=== PATIENT | female | born 1980 | race Caucasian/White ===

== ENCOUNTER 2018-02-25 03:42 | Day surgery (SDC) | payer OTHER ==
[2018-02-23 12:02] LABS: BASOPHIL % 0.4 % (0.0-0.2); EOSINOPHIL # 0.3 10^3/uL (0.0-0.2); EOSINOPHIL % 3.3 % (0.0-5.0); HEMOGLOBIN 15.3 g/dL (12.0-15.0); LYMPHOCYTES # 1.7 10^3/uL (1.0-4.8); LYMPHOCYTES % 19.8 % (24.0-44.0); MEAN CELL HGB 29.1 pg (26-34); MEAN CELL HGB CONCENTRATION 34.5 g/dL (33-37); MEAN CORP VOLUME 84.6 fL (78-100); MEAN PLATELET VOLUME 9.9 fL (7.8-11.0); MONOCYTES # 0.5 10^3/uL (0.3-0.8); MONOCYTES % 6.1 % (5.0-12.0); NEUTROPHIL # 5.9 10^3/uL (1.8-7.7); NEUTROPHILS % 70.2 % (41.0-85.0); RED CELL DISTRIBUTION WIDTH 11.8 % (11.5-14.5); WHITE BLOOD CELL 8.4 10^3/uL (4.5-11.0)
[2018-02-23 12:15] LABS: CALCIUM 8.9 mg/dL (8.4-10.5); CARBON DIOXIDE 28.7 mmol/L (20.0-32)
--- NOTE | 2018-02-23 12:26 | PCM.EKG ---
[facility] Test Date: 2018-02-23 Test Time: 12:10:14 Pat Name: ABDULAZIZ WOODWARD Department: [id number] Room: Gender: F [employer] C[employer]: RT : 1980 Requested By: MARION RENE Order Number: [id number] Reading MD: Carlos Eduardo Hernandez Measurements Intervals [place] Rate: 61 P: 37 NC: 156 QRS: 64 QRSD: 80 T: 64 QT: 428 QTc: 430 Interpretive Statements Normal sinus rhythm with sinus arrhythmia Normal ECG No previous ECG available for comparison Electronically Signed On 02-24-2018 9:20:03 CDT by Carlos Eduardo Hernandez Please click the below link to view image of tracing.
[2018-02-25] VITALS (7 sets, daily range): BP systolic 111–139; BP diastolic 69–88
[~2018-02-25] VITALS: Ht 170.2 cm; Wt 83.9 kg
[~2018-02-25 03:42] MED LIST: MELA3TAB2 PO; METF100010 PO
[2018-02-25] MEDS ORDERED: NS 1000ML 1,000 ML ONE ×2 (05:06→09:47)
[2018-02-25] MEDS ORDERED: LEVAQUIN 100 ML IV ONE (05:06)
[2018-02-25] MEDS ORDERED: DECADRON ONE (06:44)
[2018-02-25] MEDS ORDERED: VERSED ONE (06:45)
[2018-02-25] MEDS ORDERED: DIPRIVAN IV ONE (06:45)
[2018-02-25] MEDS ORDERED: ZOFRAN ONE (06:45)
[2018-02-25] MEDS ORDERED: SUBLIMAZE ONE ×2 (06:45→09:16)
[2018-02-25] MEDS ORDERED: SODIUM CHLORIDE IR ONE (07:19)
[2018-02-25] MEDS ORDERED: NS 3000ML IRR IR ONE (07:19)
[2018-02-25] MEDS ORDERED: NS 1000ML 1,000 ML IV SCH (08:00)
[2018-02-25] MEDS ORDERED: SUBLIMAZE IV STA (08:58)
[2018-02-25] MEDS ORDERED: TORADOL ONE (09:59)
[2018-02-25] MEDS ORDERED: PHENERGAN ONE (10:35)
[2018-02-25] MEDS ORDERED: NORCO 7.5MG PO PRN (11:00)
[2018-02-25] MEDS ORDERED: SUBLIMAZE IV PRN (11:00)
[2018-02-25] MEDS ORDERED: PHENERGAN IV PRN (11:00)
[2018-02-25] MEDS ORDERED: LACTATED RINGERS 1,000 ML IV SCH (11:00)
[2018-02-25] MEDS ORDERED: ZOFRAN IV PRN (11:00)
[2018-02-25] MEDS ORDERED: NORCO 7.5MG PO ONE (11:18)
--- NOTE | 2018-02-25 11:50 | OPH ---
DATE OF SURGERY: 02/25/2018 PREOPERATIVE DIAGNOSIS: Calculus, right ureteropelvic junction. FINAL DIAGNOSIS: Calculus in the right kidney. PROCEDURES: Cystoscopy, right retrograde. DESCRIPTION OF PROCEDURE: The patient was brought to the cystoscopy room, was put in supine position on the cystoscopy table. After the patient was given an LMA general anesthesia, the patient was placed in the lithotomy position. The genitalia was then prepped and draped aseptically in the usual manner. First, a 23-Upper Sorbian cystoscope was inserted per urethra up to the bladder. With of the right angle lens, the bladder was visualized. There was no tumor, no calculi, no ulcerations seen. Both ureteral orifices were normal. A right retrograde was done with the use of a ureteral catheter inserted to the right ureteral orifice, injected with Isovue dye and there is no stone in the ureter noted. The stone, which was present in the UPJ could be removed up to the right kidney. There is no evidence of hydronephrosis or obstruction seen at this time. So, after this, the procedure was then terminated. Final diagnosis was stone in the right kidney. The bladder was emptied with fluid. Instrument was removed. The patient was then awakened, was transferred to the recovery room in stable condition. Cesar Marinelli MD DR: ABDIEL/adams JOB# [id number]
[2018-02-25] MEDS ORDERED: LACTATED RINGERS 1,000 ML ONE (12:01)
--- NOTE | 2018-02-25 17:54 | DIREP ---
PROCEDURE:XRAY UROGRAPHY RETROGRADE COMPARISON:[facility], CT, CT ABDOMEN W/CONTRAST, 05/16/2017, 05:52 PM. INDICATIONS:RT RETRO W/STINT INSERTION, 24.19 mGy, 40.3 SEC FLUORO, 10 IMAGES TECHNIQUE:10 intraoperative spot films of the abdomen FINDINGS:Series of images documents contrast opacification of the right renal collecting system with was tip catheter in place. No obvious filling defects are identified. Total fluoroscopy time 40.3 seconds. CONCLUSION:Right retrograde ureteral atrophy. Dictated by: Galindo Moran M.D. on 02/25/2018 at 05:49 PM
== END 2018-02-25 11:55 | disposition home or self-care (01) | DRG 694 ==
LOC: SURG 03:42
PROVIDERS: ATTEND Urology
DX: N20.0 Calculus of kidney (principal); E11.9 Type 2 diabetes mellitus without complications; E66.3 Overweight; Z98.890 Other specified postprocedural states; Z98.51 Tubal ligation status; Z90.710 Acquired absence of both cervix and uterus; Z79.84 Long term (current) use of oral hypoglycemic drugs; Z68.28 Body mass index [BMI] 28.0-28.9, adult; Z90.49 Acquired absence of other specified parts of digestive tract; F17.210 Nicotine dependence, cigarettes, uncomplicated
CPT/HCPCS: 36415; 52005; 74420; 76000; 80048; 82948 ×2; 85025; 85610; 85730; 93005; J1100; J1885; J1956; J2250; J2405; J2550; J3010 ×2; J3490; J7030 ×4; J7120; Q9967; C1758; C1769; C2617

== ENCOUNTER → 2018-03-08 | Outpatient (CLI) | payer OTHER ==
--- NOTE | 2018-03-08 16:14 | DIREP ---
PROCEDURE:CT ABDOMEN/PELVIS W/O CONTRAST COMPARISON:[facility], CT, CT ABDOMEN W/CONTRAST, 05/16/2017, 05:52 PM. [facility], CR, XRAY UROGRAPHY RETROGRADE, 02/25/2018, 08:20 AM. INDICATIONS:FLANK PAIN/HYDRONEPHROSIS TECHNIQUE:Axial images were created through the abdomen and pelvis without intravenous contrast material. No oral contrast was administered. Sagittal and coronal reconstructions were performed from source images. FINDINGS: LUNG BASES:Normal. No visible pulmonary or pleural disease. LIVER:Normal. No significant liver lesions are identified. BILIARY:Normal. No visible dilatation or calcification. PANCREAS:Normal. No lesion, fluid collection, ductal dilatation, or atrophy. SPLEEN:Normal. No enlargement or focal lesion. ADRENALS:Normal. No mass or enlargement. URINARY TRACT:6.6 x 4.2 x 3.9 mm stone, nonobstructing, lower pole right kidney. No nephrolithiasis on the left. Both ureters are normal caliber. AORTA/VASCULAR:Normal. No aneurysm. RETROPERITONEUM:Normal. No mass or adenopathy. BOWEL/MESENTERY:Normal. There is no intestinal obstruction, free fluid, free air or mesenteric inflammatory changes. Normal appendix right lower quadrant and pelvis ABDOMINAL WALL:Normal. No mass or hernia. PELVIC ORGANS:Uterus is absent. 5 cm cyst left posterior pelvis immediately cephalad to the vaginal cuff, caudal and medial to the usual location of left ovary. This could represent lymphocele at the vaginal cuff or a left ovarian cyst. BONES:Normal for age. No bony lesion or acute fracture. OTHER:Negative. CONCLUSION:Single 6 mm nonobstructing right lower pole nephrolith. 5 cm left posterior pelvic cyst. Dictated by: Ricky Gray MD on 03/08/2018 at 03:58 PM
== END | disposition home or self-care (01) ==
LOC: RAD 15:20
PROVIDERS: ATTEND Urology
DX: N13.30 Unspecified hydronephrosis (principal)
CPT/HCPCS: 74176

== ENCOUNTER 2018-03-18 03:30 | Day surgery (SDC) | payer OTHER ==
[~2018-03-18] VITALS: Ht 170.2 cm; Wt 83.9 kg
[2018-03-18] VITALS (7 sets, daily range): BP systolic 111–138; BP diastolic 71–94
[2018-03-18] MEDS ORDERED: NS 1000ML 1,000 ML ONE (05:08)
[2018-03-18] MEDS ORDERED: LASIX ONE (05:08)
[2018-03-18] MEDS ORDERED: DECADRON ONE (06:35)
[2018-03-18] MEDS ORDERED: TORADOL ONE (06:35)
[2018-03-18] MEDS ORDERED: ZOFRAN ONE (06:35)
[2018-03-18] MEDS ORDERED: DIPRIVAN IV ONE (06:36)
[2018-03-18] MEDS ORDERED: VERSED ONE (06:36)
[2018-03-18] MEDS ORDERED: SUBLIMAZE ONE (06:36)
[2018-03-18] MEDS ORDERED: NS 1000ML 1,000 ML IV SCH (07:00)
[2018-03-18] MEDS ORDERED: ZOFRAN IV PRN (07:30)
[2018-03-18] MEDS ORDERED: PHENERGAN IV PRN (07:30)
[2018-03-18] MEDS ORDERED: BENADRYL IV PRN (07:30)
[2018-03-18] MEDS ORDERED: SUBLIMAZE IV PRN (07:30)
[2018-03-18] MEDS ORDERED: VENTOLIN IH PRN (07:30)
[2018-03-18] MEDS ORDERED: HUMULIN R IV ONE (08:30)
[2018-03-18] MEDS ORDERED: LASIX IV SCH (10:00)
[2018-03-18] MEDS ORDERED: LACTATED RINGERS 1,000 ML IV SCH (10:00)
[2018-03-18] MEDS ORDERED: NORCO 7.5MG PO PRN (10:00)
[2018-03-18] MEDS ORDERED: TRAM50TA PO (10:03)
[2018-03-18] MEDS ORDERED: TAMS0.4C2 PO (10:03)
--- NOTE | 2018-03-18 12:40 | OPH ---
DATE OF SURGERY: 03/18/2018 PREOPERATIVE DIAGNOSIS: Calculus, right kidney. FINAL DIAGNOSIS: Calculus, right kidney. PROCEDURES: Right ESWL. DESCRIPTION OF PROCEDURE: The patient was brought to the lithotripsy room and put in supine position on lithotripsy table. A right preop renal ultrasound was initially performed which revealed a large calculus in the lower pole of the right kidney measuring 1.36 cm in diameter. There was no evidence of hydronephrosis, no evidence of obstruction. After the patient was given an LMA general anesthesia and after localization of the stone with the use of an ultrasound and a fluoroscopy, a right ESWL was then performed using a Dornier Compact Delta II Lithotripter. A total of 2500 shockwaves were delivered to the stone in the lower pole of the right kidney under ultrasound guidance. After fragmentation of the stone as noted in the ultrasound, the procedure was terminated. The patient was awakened and was transferred to the recovery room in stable condition. Cesar Marinelli MD DR: ABDIEL/adams JOB# [id number]
== END 2018-03-18 11:08 | disposition home or self-care (01) | DRG 694 ==
LOC: SURG 03:30
PROVIDERS: ATTEND Urology
DX: N20.0 Calculus of kidney (principal); E66.3 Overweight; E11.9 Type 2 diabetes mellitus without complications; Z90.710 Acquired absence of both cervix and uterus; Z79.899 Other long term (current) drug therapy; Z68.28 Body mass index [BMI] 28.0-28.9, adult; Z90.49 Acquired absence of other specified parts of digestive tract; F17.210 Nicotine dependence, cigarettes, uncomplicated; Z98.51 Tubal ligation status; Z79.84 Long term (current) use of oral hypoglycemic drugs
CPT/HCPCS: 50590; 82948 ×2; J1100; J1885; J2250; J2405; J3010; J3490; J7030; J1940

== ENCOUNTER 2018-03-21 10:27 | Day surgery (SDC) | payer OTHER ==
[~2018-03-21] VITALS: Ht 170.2 cm; Wt 85.3 kg
[2018-03-21] VITALS (8 sets, daily range): BP systolic 104–139; BP diastolic 68–85
[~2018-03-21 10:27] MED LIST changes: +TAMS0.4C2 PO; +TRAM50TA PO
--- NOTE | 2018-03-21 11:03 | NUR ---
DR EDGARD RENE AT PT BEDSIDE AT THIS TIME
[2018-03-21] MEDS ORDERED: NS 3000ML IRR IR ONE (11:22)
[2018-03-21] MEDS ORDERED: SODIUM CHLORIDE IR ONE (11:22)
[2018-03-21] MEDS ORDERED: DECADRON ONE (11:25)
[2018-03-21] MEDS ORDERED: LIDOCAINE 2% VIAL ONE (11:25)
[2018-03-21] MEDS ORDERED: VERSED ONE (11:25)
[2018-03-21] MEDS ORDERED: ZOFRAN ONE (11:25)
[2018-03-21] MEDS ORDERED: TORADOL ONE (11:25)
[2018-03-21] MEDS ORDERED: SUBLIMAZE ONE (11:26)
[2018-03-21] MEDS ORDERED: DIPRIVAN IV ONE (11:26)
[2018-03-21] MEDS ORDERED: NS 1000ML 1,000 ML ONE (11:30)
[2018-03-21] MEDS ORDERED: LEVAQUIN 100 ML IV ONE (11:47)
[2018-03-21] MEDS ORDERED: CIPR500T86 PO (12:23)
--- NOTE | 2018-03-21 12:26 | HPH ---
ADMIT DATE: 03/21/2018 The patient was seen in the Emergency Room this morning. HISTORY OF PRESENT ILLNESS: This is a 37-year-old white female who was seen in the Emergency Room because of severe right renal colic. The patient has a kidney stone and has a recent extracorporeal shockwave lithotripsy done in the right kidney stone on Wednesday, which is 03/18/2018. He went to the Emergency Room in [place] 2 days ago and they did a noncontrast CT scan which showed some stone in the right proximal ureter, some pieces of the particles that was performed during the shock wave lithotripsy. It caused hydronephrosis. The patient was given something for pain and Flomax, but this morning, the patient is still complaining of severe recurrent right flank pain and was seen in the Emergency Room and because of the previous finding on the CT scan, the patient was then admitted to the OP-23 for further evaluation and management and to do cystoscopy and retrograde. Cesar Marinelli MD DR: ABDIEL/adams JOB# [id number]
[2018-03-21] MEDS ORDERED: DEMEROL IV PRN (12:30)
[2018-03-21] MEDS ORDERED: VENTOLIN IH PRN (12:30)
[2018-03-21] MEDS ORDERED: DILAUDID IV PRN (12:30)
[2018-03-21] MEDS ORDERED: NORCO 7.5MG PO PRN ×2 (12:30)
[2018-03-21] MEDS ORDERED: PHENERGAN IV PRN ×2 (12:30)
[2018-03-21] MEDS ORDERED: LACTATED RINGERS 1,000 ML IV SCH (12:30)
[2018-03-21] MEDS ORDERED: ZOFRAN IV PRN (12:30)
[2018-03-21] MEDS ORDERED: BENADRYL IV PRN (12:30)
[2018-03-21] MEDS ORDERED: ACET-685 PO (13:12)
--- NOTE | 2018-03-21 13:35 | DIREP ---
PROCEDURE:XRAY UROGRAPHY RETROGRADE COMPARISON:[facility], CT, CT RENAL STONE PROTOCOL, 03/20/2018, 08:30 AM. [facility], CR, XRAY UROGRAPHY RETROGRADE, 02/25/2018, 08:20 AM. INDICATIONS:right retro, 32.73 mGy, 89.1 sec fluoro, 10cc Omni 240 used, 8 images TECHNIQUE:Fluoroscopy was utilized during urologic intervention. 89.1 seconds fluoroscopy time was used. Eight fluoroscopic spot images were provided. FINDINGS:The initial images appear to reflect banana carrier views of the abdomen and pelvis. The right proximal ureteral calculus seen on the recent CT is difficult to identify radiographically. Subsequent images demonstrate retrograde opacification of the right ureter with partial opacification of the right intrarenal collecting system. The proximal right ureter is somewhat prominent with mild distention of the right intrarenal collecting system. There is fairly abrupt caliber change of the proximal right ureter at the level of the L3-L4 disc space which is at the level of the previously seen calculus. The calculus itself is difficult to definitively identify. The final images demonstrate sequential right ureteral stent placement. CONCLUSION: 1. Images obtained during right retrograde pyelogram with right ureteral stent placement as discussed above. Please refer to the separate procedure report for further details. Dictated by: Rios Georges M.D. On 03/21/2018 at 01:39 PM
--- NOTE | 2018-03-21 14:44 | OPH ---
DATE OF SURGERY: 03/21/2018 PREOPERATIVE DIAGNOSIS: Calculus, right proximal ureter. FINAL DIAGNOSIS: Calculus, right proximal ureter. PROCEDURES: Cystoscopy, right retrograde, stone manipulation and insertion of double-J ureteral stent. DESCRIPTION OF PROCEDURE: The patient was brought to the cystoscopy room and put in supine position on the cystoscopy table. After the patient was given a satisfactory and adequate LMA general anesthesia, the patient was placed in lithotomy position. The genitalia was then prepped and draped aseptically in usual manner. First, a 23-Faroese cystoscope was inserted per urethra up to the bladder. With the use of right angle lens, the bladder was visualized. There was no tumor, no calculi, no ulcerations seen. Both ureteral orifices were normal and initial right retrograde was performed by inserting a 7-Faroese ureteral catheter, the right ureteral orifice injected with Isovue dye and it showed some stone in the proximal ureter causing obstruction with causing hydronephrosis. Right wrist manipulation was then performed and then 4.8 Faroese double J ureteral stent was inserted from the right orifice all the way to the kidney. After this was done, the bladder was emptied with fluid. The guidewire was removed including the cystoscope was removed. Procedure was terminated. The patient was then awakened, was transferred to the recovery room in stable condition. Cesar Marinelli MD DR: ABDIEL/adams JOB# [id number] ALEXEI
== END 2018-03-21 13:15 | disposition home or self-care (01) ==
LOC: ER 10:27 → SDC 11:10
PROVIDERS: ATTEND Urology
DX: N20.1 Calculus of ureter (principal); Z98.890 Other specified postprocedural states; F17.210 Nicotine dependence, cigarettes, uncomplicated
CPT/HCPCS: 52332; 74420; 76000; 99285; J1100; J1885; J1956; J2001; J2250; J2405; J3010; J3490; J7030 ×3; C1758; C1769; C2617

== ENCOUNTER 2018-03-26 12:50 | Emergency (ER) | payer OTHER ==
[~2018-03-26] VITALS: Ht 170.2 cm; Wt 85.3 kg
[~2018-03-26 12:50] MED LIST changes: +ACET-685 PO; +CIPR500T86 PO
[2018-03-26] MEDS ORDERED: MORPHINE SULFATE IM STA (12:59)
[2018-03-26] MEDS ORDERED: TORADOL IM ONE (13:00)
--- NOTE | 2018-03-26 13:02 | NUR ---
ARRIVAL PATIENT ARRIVED TO ED4 AMBULATORY WITH SPOUSE, C/O OF RIGHT SUPRAPUBIC PAIN THAT STARTED TODAY, PATIENT HAD A STENT PLACED BY DOCTOR RENE ON WEDNESDAY AND WAS SENT HOME. PAIN INCREASED OVER THE PAST FEW DAYS, TODAY PAIN SEVERE WITH VOMITING, UNABLE TO HOLD PAIN MEDICATIONS DOWN, SPOUSE BROUGHT TO THE ED FOR FURTHER EVAL. DOCTOR MARIO TO ROOM.
[2018-03-26 13:04] VITALS: BP 155/92
[2018-03-26] MEDS ORDERED: TORADOL ONE (13:06)
[2018-03-26] MEDS ORDERED: ZOFRAN ODT ONE (13:07)
[2018-03-26] MEDS ORDERED: MORPHINE SULFATE ONE (13:07)
[2018-03-26 13:09] LABS: BILIRUBIN,URINE NEGATIVE (NEGATIVE); UROBILINOGEN,URINE NORMAL (NEGATIVE)
[2018-03-26 13:13] LABS: BASOPHIL % 0.3 % (0.0-0.2); EOSINOPHIL # 0.4 10^3/uL (0.0-0.2); EOSINOPHIL % 3.8 % (0.0-5.0); HEMOGLOBIN 15.9 g/dL (12.0-15.0); LYMPHOCYTES # 1.8 10^3/uL (1.0-4.8); LYMPHOCYTES % 17.1 % (24.0-44.0); MEAN CELL HGB 29.2 pg (26-34); MEAN CELL HGB CONCENTRATION 34.8 g/dL (33-37); MEAN CORP VOLUME 83.9 fL (78-100); MEAN PLATELET VOLUME 9.9 fL (7.8-11.0); MONOCYTES # 0.6 10^3/uL (0.3-0.8); MONOCYTES % 5.5 % (5.0-12.0); NEUTROPHIL # 7.7 10^3/uL (1.8-7.7); RED CELL DISTRIBUTION WIDTH 12.4 % (11.5-14.5); WHITE BLOOD CELL 10.5 10^3/uL (4.5-11.0)
[2018-03-26] MEDS ORDERED: ZOFRAN ODT SL STA (13:14)
[2018-03-26 13:15] LABS: APPEARANCE,URINE SLIGHTLY HAZY (CLEAR); UA COLOR YELLOW (YELLOW)
[2018-03-26 13:28] LABS: CALCIUM 8.7 mg/dL (8.4-10.5); CARBON DIOXIDE 20.2 mmol/L (20.0-32)
[2018-03-26 13:29] LABS: HCG QUALITATIVE SERUM NEGATIVE (NEGATIVE)
--- NOTE | 2018-03-26 13:44 | DIREP ---
PROCEDURE:CT ABDOMEN/PELVIS W/O CONTRAST COMPARISON:[facility], CT, CT RENAL STONE PROTOCOL, 03/20/2018, 08:30 AM. [facility], CT, CT ABD/PELVIS W/O, 03/08/2018, 03:31 PM. INDICATIONS:RENAL COLIC TECHNIQUE:Axial images were created through the abdomen and pelvis without intravenous contrast material. No oral contrast was administered. Sagittal and coronal reconstructions were performed from source images. FINDINGS: LUNG BASES:Normal. No visible pulmonary or pleural disease. LIVER:Normal. No significant liver lesions are identified. BILIARY:The gallbladder is surgically absent. There is no biliary ductal dilatation. PANCREAS:Normal. No lesion, fluid collection, ductal dilatation, or atrophy. SPLEEN:Normal. No enlargement or focal lesion. ADRENALS:Normal. No mass or enlargement. URINARY TRACT:5 mm stone lower pole right kidney remains. A double pigtail right ureteral stent has been placed. There is no evidence of hydronephrosis. AORTA/VASCULAR:Normal. No aneurysm. RETROPERITONEUM:Normal. No mass or adenopathy. BOWEL/MESENTERY:Normal. There is no intestinal obstruction, free fluid, free air or mesenteric inflammatory changes. Normal appendix. ABDOMINAL WALL:Normal. No mass or hernia. PELVIC ORGANS:The uterus is surgically absent. No visible mass. Large left ovarian cyst measuring 5.5 cm. BONES:Normal for age. No bony lesion or acute fracture. OTHER:Negative. CONCLUSION: 1. Interval placement of double pigtail right ureteral stent. No evidence of hydronephrosis. No stones are seen along the course of the right ureter. 2. Stable stone in lower pole of right kidney. 3. Enlarging left ovarian cyst. Dictated by: Galindo Moran M.D. on 03/26/2018 at 01:40 PM
--- NOTE | 2018-03-26 14:01 | ER.PDOC ---
General Chief Complaint: Female Urogenital Problems Stated Complaint: PAIN,VOMITING, S/P STENT R URETER 5 DAYS AGO Time seen by MD: 14:00 Source: patient Exam Limitations: no limitations History of Present Illness Timing/Duration: 1 week Severity/Quality: severe Radiation: flank Exacerbated by: nothing Allergies: Coded Allergies: No Known Allergies (Unverified , 02/23/18) Home Meds Active Scripts Ciprofloxacin Hcl (CIPRO) 500 Mg Tablet, 500 MG PO BID, #20 Prov:MARION RENE MD 03/21/18 Tramadol Hcl (TRAMADOL HCL) 50 Mg Tablet, 50 MG PO Q6 PRN for PAIN, #15 TABLET Prov:MARION RENE MD 03/18/18 Tamsulosin Hcl (TAMSULOSIN HCL) 0.4 Mg Cap.er.24h, 0.4 MG PO DAILY24, #20 Prov:MARION RENE MD 03/18/18 Reported Medications Acetaminophen With Codeine (TYLENOL WITH CODEINE #3 TABLET) 1 Each Tablet, 1 TAB PO Q4, #15 TAB 03/21/18 Melatonin (MELATONIN) 3 Mg Tablet, 1 TAB PO HS, #30 TAB 1 Refill 02/23/18 Metformin Hcl (METFORMIN HCL ER) 1,000 Mg Tab.er.24, 1 TAB PO BID, #90 TAB 1 Refill 02/23/18 Vital Signs First Vital Signs Date Time Temp Pulse Resp B/P (MAP) Pulse Ox O2 Delivery O2 Flow Rate FiO2 03/21/18 13:00 72 03/26/18 13:01 98.2 22 03/26/18 13:02 99 Room Air 03/26/18 13:04 155/92 (113) Last Vital Signs Date Time Temp Pulse Resp B/P (MAP) Pulse Ox O2 Delivery O2 Flow Rate FiO2 03/26/18 13:04 98.2 61 22 155/92 (113) 99 Room Air Past Medical History Medical History: diabetes, other (URETERIC COLIC) Surgical History: cholecystectomy, hysterectomy, stent, tonsillectomy LMP (females 10-50): hysterectomy Social History Smoking: cigarettes Alcohol Use: none Drug Use: none Reviewed Nursing Reviewed: Vital Signs, Abn. Noted Gastrointestinal: nausea, vomiting All Other Systems: Reviewed and Negative Physical Exam General Appearance: Anxious HEENT: PERRL/EOMI, Normal ENT Inspection, TMs Normal, Pharynx Normal Neck: Non-Tender, Full Range of Motion, Supple, Normal Inspection Respiratory: chest non-tender, lungs clear, normal breath sounds, no respiratory distress, no accessory muscle use Cardiovascular: Normal Peripheral Pulses, Regular Rate, Rhythm, No Edema, No Gallop, No JVD, No Murmur Gastrointestinal: Tenderness (R FLANK) Back: Normal Inspection, No CVA Tenderness, No Vertebral Tenderness Extremities: Normal Range of Motion, Non-Tender, Normal Inspection, No Pedal Edema, No Calf Tenderness, Normal Capillary Refill, Pelvis Stable 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 NML as Tested, No Motor/Sensory Deficits, Alert, Normal Mood/Affect, Oriented x 3 Skin: Normal Color, Warm/Dry Lymphatic: No Adenopathy Results/Orders Results/Orders Laboratory Tests Test 03/26/18 13:05 03/26/18 13:06 White Blood Count 10.5 10^3/uL (4.5-11.0) Red Blood Count 5.45 10^6/uL (4.00-5.20) Hemoglobin 15.9 g/dL (12.0-15.0) Hematocrit 45.7 % (36.0-46.0) Mean Corpuscular Volume 83.9 fL (78-100) Mean Corpuscular Hemoglobin 29.2 pg (26-34) Mean Corpuscular Hemoglobin Concent 34.8 g/dL (33-37) Red Cell Distribution Width 12.4 % (11.5-14.5) Platelet Count 232 10^3/uL (150-400) Mean Platelet Volume 9.9 fL (7.8-11.0) Neutrophils (%) (Auto) 73.0 % (41.0-85.0) Lymphocytes (%) (Auto) 17.1 % (24.0-44.0) Monocytes (%) (Auto) 5.5 % (5.0-12.0) Neutrophils # (Auto) 7.7 10^3/uL (1.8-7.7) Lymphocytes # (Auto) 1.8 10^3/uL (1.0-4.8) Monocytes # (Auto) 0.6 10^3/uL (0.3-0.8) Absolute Immature Granulocyte (auto 0.03 10^3 u/L (0-2) Eosinophils % 3.8 % (0.0-5.0) Basophils % 0.3 % (0.0-0.2) Basophils # 0.0 10^3/uL (0.0-0.1) Eosinophil Count 0.4 10^3/uL (0.0-0.2) Prothrombin Time 9.9 SEC (9.8-11.9) Prothrombin Time INR (Non-Therap) 1.0 Activated Partial Thromboplast Time 22.7 SEC (24.67-30.72) Sodium Level 134 mmol/L (132-145) Potassium Level 3.7 mmol/L (3.6-5.2) Chloride Level 103.0 mmol/L (96-109) Carbon Dioxide Level 20.2 mmol/L (20.0-32) Anion Gap 14.5 Blood Urea Nitrogen 6 mg/dL (7-18) Creatinine 0.77 mg/dL (0.59-1.40) Estimated GFR () 101.0 (>/=60) BUN/Creatinine Ratio 7.0 Glucose Level 235 mg/dL (70-110) Calcium Level 8.7 mg/dL (8.4-10.5) Total Bilirubin 0.4 mg/dL (0.2-1.0) Aspartate Amino Transf (AST/SGOT) 18 U/L (0-35) Alanine Aminotransferase (ALT/SGPT) 31 U/L (12-78) Alkaline Phosphatase 93 U/L (50-136) Total Protein 7.5 g/dL (6.4-8.2) Albumin 3.2 g/dL (3.4-5.0) Globulin 4.3 Amylase Level 27 U/L (25-115) Lipase 73 U/L (114-286) Serum HCG, Qualitative NEGATIVE (NEGATIVE) Percent Immature Gran (Cell Imm) 0.30 % (0.00-0.50) Helicobacter pylori Screen NEGATIVE (NEGATIVE) Urine Collection Type UNKNOWN Urine Color YELLOW (YELLOW) Urine Appearance SLIGHTLY HAZY (CLEAR) Urine Bilirubin NEGATIVE MG/DL (NEGATIVE) Urine Ketones NEGATIVE (NEGATIVE) Urine Specific [place] 1.015 (1.005-1.035) Urine pH 5 (5.0-6.0) Urine Protein 30 mg/dL (NEGATIVE) Urine Urobilinogen NORMAL (NEGATIVE) Urine Nitrate NEGATIVE (NEGATIVE) Urine Leukocyte Esterase 100/ul 1+ (NEGATIVE) Urine Blood 250 4+ (NEGATIVE) Urine RBC TNTC RBC/HPF (NONE SEEN) Urine WBC 2-5 WBC/HPF (0-2) Urine Squamous Epithelial Cells RARE #/HPF (FEW) Urine Bacteria FEW (NONE SEEN) Urine Glucose 1000 (NEGATIVE) Administered Medications Medications (Trade) Dose Ordered Sig/Madelyn Route PRN Reason Start Time Stop Time Status Last Admin Dose Admin Ketorolac Tromethamine (Toradol) 60 mg OT ONCE IM 03/26/18 13:00 03/26/18 13:01 DC 03/26/18 13:12 Morphine Sulfate (Morphine Sulfate) 4 mg STAT STAT IM 03/26/18 12:59 03/26/18 13:01 DC 03/26/18 13:12 Ondansetron HCl (Zofran Odt) 4 mg STAT STAT SL 03/26/18 13:14 03/26/18 13:15 DC 03/26/18 13:16 Course Sepsis Screening Results: Posi: POSITIVE SEPSIS RISK Vitals & review Data Vital Sign - Last 24 Hours 03/26/18 03/26/18 03/26/18 13:01 13:02 13:04 Temp 98.2 98.2 98.2 Pulse 61 61 61 Resp 22 22 22 B/P (MAP) 155/92 (113) Pulse Ox 99 99 O2 Delivery Room Air Room Air Laboratory Tests Test 03/26/18 13:05 03/26/18 13:06 White Blood Count 10.5 10^3/uL Red Blood Count 5.45 10^6/uL Hemoglobin 15.9 g/dL Hematocrit 45.7 % Mean Corpuscular Volume 83.9 fL Mean Corpuscular Hemoglobin 29.2 pg Mean Corpuscular Hemoglobin Concent 34.8 g/dL Red Cell Distribution Width 12.4 % Platelet Count 232 10^3/uL Mean Platelet Volume 9.9 fL Neutrophils (%) (Auto) 73.0 % Lymphocytes (%) (Auto) 17.1 % Monocytes (%) (Auto) 5.5 % Neutrophils # (Auto) 7.7 10^3/uL Lymphocytes # (Auto) 1.8 10^3/uL Monocytes # (Auto) 0.6 10^3/uL Absolute Immature Granulocyte (auto 0.03 10^3 u/L Eosinophils % 3.8 % Basophils % 0.3 % Basophils # 0.0 10^3/uL Eosinophil Count 0.4 10^3/uL Prothrombin Time 9.9 SEC Prothrombin Time INR (Non-Therap) 1.0 Activated Partial Thromboplast Time 22.7 SEC Sodium Level 134 mmol/L Potassium Level 3.7 mmol/L Chloride Level 103.0 mmol/L Carbon Dioxide Level 20.2 mmol/L Anion Gap 14.5 Blood Urea Nitrogen 6 mg/dL Creatinine 0.77 mg/dL Estimated GFR () 101.0 BUN/Creatinine Ratio 7.0 Glucose Level 235 mg/dL Calcium Level 8.7 mg/dL Total Bilirubin 0.4 mg/dL Aspartate Amino Transf (AST/SGOT) 18 U/L Alanine Aminotransferase (ALT/SGPT) 31 U/L Alkaline Phosphatase 93 U/L Total Protein 7.5 g/dL Albumin 3.2 g/dL Globulin 4.3 Amylase Level 27 U/L Lipase 73 U/L Serum HCG, Qualitative NEGATIVE Percent Immature Gran (Cell Imm) 0.30 % Helicobacter pylori Screen NEGATIVE Urine Collection Type UNKNOWN Urine Color YELLOW Urine Appearance SLIGHTLY HAZY Urine Bilirubin NEGATIVE MG/DL Urine Ketones NEGATIVE Urine Specific [place] 1.015 Urine pH 5 Urine Protein 30 mg/dL Urine Urobilinogen NORMAL Urine Nitrate NEGATIVE Urine Leukocyte Esterase 100/ul 1+ Urine Blood 250 4+ Urine RBC TNTC RBC/HPF Urine WBC 2-5 WBC/HPF Urine Squamous Epithelial Cells RARE #/HPF Urine Bacteria FEW Urine Glucose 1000 Departure Time of Disposition: 14:33 Disposition: 01 HOME, SELF-CARE Impression: Primary Impression: Calculus of kidney Condition: Improved Referrals: FRANSISCO GRANGER (PCP) PRIMARY CARE PROVIDER MARION RENE MD (Family) Comments F/U WITH DR RENE NEXT WEEK Duration or Time Spent with Pa: 2 HRS JIM MARTIN MD Mar 26, 2018 14:01
[2018-03-26 14:17] VITALS: BP 138/82
[2018-03-26 14:23] VITALS: BP 138/82
== END 2018-03-26 14:17 | disposition home or self-care (01) ==
LOC: ER 12:50
DX: N20.0 Calculus of kidney (principal); E11.9 Type 2 diabetes mellitus without complications; R79.1 Abnormal coagulation profile; F17.210 Nicotine dependence, cigarettes, uncomplicated; Z90.49 Acquired absence of other specified parts of digestive tract; Z90.710 Acquired absence of both cervix and uterus; Z79.84 Long term (current) use of oral hypoglycemic drugs
CPT/HCPCS: 36415; 74176; 80053; 81000; 82150; 83690; 84703; 85025; 85610; 85730; 86677; 87086; 96372; 99285; J1885; J2270; Q0162

== ENCOUNTER 2018-03-31 01:55 | Day surgery (SDC) | payer OTHER ==
[2018-03-31] VITALS (13 sets, daily range): BP systolic 118–146; BP diastolic 58–94
[~2018-03-31] VITALS: Ht 170.2 cm; Wt 83.9 kg
[2018-03-31] MEDS ORDERED: NS 1000ML 1,000 ML ONE ×2 (05:10→10:42)
[2018-03-31] MEDS ORDERED: LEVAQUIN 100 ML IV ONE (05:10)
[2018-03-31] MEDS ORDERED: DECADRON ONE (06:55)
[2018-03-31] MEDS ORDERED: ZOFRAN ONE (06:56)
[2018-03-31] MEDS ORDERED: VERSED ONE ×2 (06:56→10:04)
[2018-03-31] MEDS ORDERED: SUBLIMAZE ONE (06:57)
[2018-03-31] MEDS ORDERED: DIPRIVAN IV ONE (06:58)
[2018-03-31] MEDS ORDERED: ACET-687 PO (07:39)
[2018-03-31] MEDS ORDERED: LACTATED RINGERS 1,000 ML IV SCH ×3 (08:00→10:00)
[2018-03-31] MEDS: NS 1000ML 1,000 ML IV SCH ×2 (08:28→10:45)
[2018-03-31] MEDS ORDERED: SODIUM CHLORIDE IR ONE (08:46)
[2018-03-31] MEDS ORDERED: NS 3000ML IRR IR ONE (08:46)
[2018-03-31] MEDS ORDERED: NORCO 7.5MG PO PRN (09:30)
[2018-03-31] MEDS ORDERED: TORADOL ONE (09:48)
[2018-03-31] MEDS ORDERED: PHENERGAN IV PRN (10:00)
[2018-03-31] MEDS ORDERED: DEMEROL ONE (10:00)
[2018-03-31] MEDS ORDERED: ZOFRAN IV PRN (10:00)
[2018-03-31] MEDS ORDERED: SUBLIMAZE IV PRN (10:00)
[2018-03-31] MEDS ORDERED: DEMEROL IV STA (10:00)
[2018-03-31] MEDS ORDERED: ATIVAN ONE (10:00)
[2018-03-31] MEDS ORDERED: PHENERGAN ONE (10:02)
--- NOTE | 2018-03-31 10:52 | OPH ---
DATE OF SURGERY: 03/31/2018 PREOPERATIVE DIAGNOSIS: Calculus, right proximal ureter, status post ESWL with an indwelling right ureteral stent. FINAL DIAGNOSIS: Calculus, right proximal ureter, status post ESWL with an indwelling right ureteral stent. PROCEDURES: Cystoscopy, removal of right ureteral stent with ureteroscopy. DESCRIPTION OF PROCEDURE: The patient was brought to the cystoscopy room and was put in supine position on the cystoscopy table. After the patient was given satisfactory and adequate general anesthesia, the patient was placed in the lithotomy position. The genitalia was then prepped and draped aseptically in the usual manner. First, a 23-Greek cystoscope was inserted per urethra up to the bladder. With the use of the right angle lens, the bladder was visualized. There was some congestion noted. The right ureteral orifice revealed presence of a stent. The ureteral stent was removed and replaced with a Glidewire. After that, the cystoscope was removed and a 7-Greek semirigid ureteroscope was inserted from the right orifice all the way to the proximal ureter and revealed no more evidence of residual stone noted. After this was done, the ureteroscope and the Glidewire were removed and the cystoscope was reinserted into the bladder and the bladder was emptied with fluid. After this was done, instrument was removed. The procedure was terminated. The patient was then awakened, was transferred to the recovery room in stable condition. Cesar Marinelli MD DR: ABDIEL/adams JOB# [id number]
--- NOTE | 2018-03-31 15:33 | DIREP ---
PROCEDURE:XRAY FLUOROSCOPY COMPARISON:[facility], CT, CT ABD/PELVIS W/O, 03/26/2018, 01:19 PM. [facility], CR, XRAY UROGRAPHY RETROGRADE, 03/21/2018, 09:55 AM. INDICATIONS:CYSTO WITH STENT REMOVAL 13 FILMS 46.69MGY 117.6 SECS FLURO TECHNIQUE:Fluoroscopy was utilized for urologic intervention. 117.6 seconds fluoroscopy time was used. Thirteen fluoroscopic spot views were provided. FINDINGS:The initial images reflect freezer assistant views of the abdomen and pelvis. A right ureteral stent is in place. The right renal calculus seen on the previous CT is difficult to appreciate fluoroscopically. No definite calcifications are identified along the course of the right ureteral stent. Subsequent images demonstrate sequential right ureteral stent removal. The stent is absent on the final images. CONCLUSION: 1. Images obtained during urologic intervention with right ureteral stent removal as discussed above. Please refer to the separate procedure report for further details. Dictated by: Rios Georges M.D. On 03/31/2018 at 03:28 PM
== END 2018-03-31 11:54 | disposition home or self-care (01) ==
LOC: SURG 01:55
PROVIDERS: ATTEND Urology
DX: Z46.6 Encounter for fitting and adjustment of urinary device (principal); N20.1 Calculus of ureter; E11.9 Type 2 diabetes mellitus without complications; E66.3 Overweight; F32.9 Major depressive disorder, single episode, unspecified; Z98.890 Other specified postprocedural states; Z79.899 Other long term (current) drug therapy; Z90.710 Acquired absence of both cervix and uterus; Z90.49 Acquired absence of other specified parts of digestive tract; F17.210 Nicotine dependence, cigarettes, uncomplicated; Z98.51 Tubal ligation status; Z79.84 Long term (current) use of oral hypoglycemic drugs; Z68.28 Body mass index [BMI] 28.0-28.9, adult
CPT/HCPCS: 52310; 76000; 82948 ×2; J1100; J1885; J1956; J2060; J2175; J2250 ×2; J2405; J2550; J3010; J3490; J7030 ×4; C1758

== ENCOUNTER 2018-04-01 13:22 | Inpatient (IN) | payer OTHER ==
[~2018-04-01] VITALS: Ht 170.2 cm; Wt 89.4 kg
[2018-04-01] VITALS (31 sets, daily range): BP systolic 103–163; BP diastolic 44–89
[~2018-04-01 13:22] MED LIST changes: +ACET-687 PO
--- NOTE | 2018-04-01 13:35 | NUR ---
ARRIVAL PT ARRIVED AMBULATORY TO ER 4 C/O GENERALIZED ABDOMINAL PAIN, FEVER AND CHILLS. PT STATES HAD RENAL STENT REMOVED YESTERDAY. PT STATES HAS NOT HAD BOWEL MOVEMENT X2 WEEKS, HAS BEEN ON TRAMADOL, TYLENOL #3 AND TYLENOL #4 X1 MONTH. NO ACUTE DISTRESS NOTED. EDP NOTIFIED OF PT ARRIVAL.
[2018-04-01] MEDS ORDERED: NS 1000ML 1,000 ML IV STA (14:23)
--- NOTE | 2018-04-01 14:23 | ER.PDOC ---
General Chief Complaint: Abdomen Pain Stated Complaint: FEVER,CHILLS,VOMITING Time seen by MD: 13:35 Source: patient, family Exam Limitations: no limitations History of Present Illness Initial Comments PT has DM and has been on cipro for 1 month with multiple attempts to obtain stone. Yesterday, she had a stent and stone removal and this AM 0500 awoke w/ fever 101.3, chills, body aches, n/v. 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 Pt denies back pain but has burning pain periumbilically that is mild and hasn't had a bm for some time having been on narcotics for seeks. Severity/Quality: moderate Abdominal Pain Onset Location: Periumbilical Associated Symptoms (vomiting): mild vomiting Associated Symptoms (diarrhea): mild Prior symptoms/Treatment: Recenly Seen, Treated by Doctor Allergies: Coded Allergies: No Known Allergies (Unverified , 02/23/18) Home Meds Active Scripts Ciprofloxacin Hcl (CIPRO) 500 Mg Tablet, 500 MG PO BID, #20 Prov:MARION RENE MD 03/21/18 Tramadol Hcl (TRAMADOL HCL) 50 Mg Tablet, 50 MG PO Q6 PRN for PAIN, #15 TABLET Prov:MARION RENE MD 03/18/18 Tamsulosin Hcl (TAMSULOSIN HCL) 0.4 Mg Cap.er.24h, 0.4 MG PO DAILY24, #20 Prov:MARION RENE MD 03/18/18 Reported Medications Acetaminophen With Codeine (TYLENOL WITH CODEINE #4 TABLET) 1 Each Tablet, 1 TAB PO Q6 PRN for PAIN, #120 TAB 03/31/18 Melatonin (MELATONIN) 3 Mg Tablet, 1 TAB PO HS, #30 TAB 1 Refill 02/23/18 Metformin Hcl (METFORMIN HCL ER) 1,000 Mg Tab.er.24, 1 TAB PO BID, #90 TAB 1 Refill 02/23/18 Discontinued Reported Medications Acetaminophen With Codeine (TYLENOL WITH CODEINE #3 TABLET) 1 Each Tablet, 1 TAB PO Q4, #15 TAB 03/21/18 Vital Signs First Vital Signs Date Time Temp Pulse Resp B/P (MAP) Pulse Ox O2 Delivery O2 Flow Rate FiO2 03/31/18 11:40 84 04/01/18 13:42 100.9 17 98 Room Air 7/6/18 13:48 163/59 (93) Last Vital Signs Date Time Temp Pulse Resp B/P (MAP) Pulse Ox O2 Delivery O2 Flow Rate FiO2 04/01/18 13:48 100.9 86 17 163/59 (93) 98 Room Air Past Medical History Medical History: diabetes Surgical History: cholecystectomy, hysterectomy, tubal, other (recent stent removal) Social History Smoking: less than 1 pack/day Alcohol Use: none Drug Use: none Reviewed Nursing Reviewed: Vital Signs, Abn. Noted, Nursing Assessment Constitutional: see HPI, chills, diaphoresis, fever, malaise, weakness EENTM: no symptoms reported Respiratory: no symptoms reported; denies cough, denies shortness of breath Cardiovascular: no symptoms reported; denies chest pain, denies edema, denies irregular heart rate, denies syncope Gastrointestinal: see HPI, abdominal pain, constipated; denies diarrhea; nausea ; denies poor fluid intake, denies rectal bleeding; vomiting Genitourinary: no symptoms reported; denies burning, denies dysuria, denies frequency, denies flank pain Musculoskeletal: see HPI, muscle pain (diffuse aches) Skin: no symptoms reported; denies change in color, denies rash All Other Systems: Reviewed and Negative Physical Exam General Appearance: Anxious, Mild Distress (appears uncomfortable) HEENT: PERRL/EOMI, Normal ENT Inspection, TMs Normal, Pharynx Normal Neck: Non-Tender, Full Range of Motion, Supple, Normal Inspection Respiratory: chest non-tender, lungs clear, normal breath sounds, no respiratory distress, no accessory muscle use Cardiovascular: Normal Peripheral Pulses, Regular Rate, Rhythm, No Edema, No Gallop, No JVD, No Murmur Gastrointestinal: Normal Bowel Sounds, Non Tender, Soft Back: Normal Inspection, No CVA Tenderness, No Vertebral Tenderness Extremities: Normal Range of Motion, Non-Tender, Normal Inspection, No Pedal Edema, No Calf Tenderness, Normal Capillary Refill, Pelvis Stable 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, No Motor/Sensory Deficits, Alert, Normal Mood/Affect, Oriented x 3 Skin: Normal Color, Warm/Dry Results/Orders Results/Orders Laboratory Tests Test 04/01/18 14:11 04/01/18 14:30 Blood Gas Sample Site LEFT BRACHIAL ARTRY Willie Test N/A Lactic Acid (Blood Gas) 2.3 MMOL/L (0.5-1.0) Blood Gas Temperature 37 White Blood Count 4.7 10^3/uL (4.5-11.0) Red Blood Count 4.67 10^6/uL (4.00-5.20) Hemoglobin 13.8 g/dL (12.0-15.0) Hematocrit 39.7 % (36.0-46.0) Mean Corpuscular Volume 85.0 fL (78-100) Mean Corpuscular Hemoglobin 29.6 pg (26-34) Mean Corpuscular Hemoglobin Concent 34.8 g/dL (33-37) Red Cell Distribution Width 12.2 % (11.5-14.5) Platelet Count 128 10^3/uL (150-400) Mean Platelet Volume 10.4 fL (7.8-11.0) Neutrophils (%) (Auto) 89.0 % (41.0-85.0) Lymphocytes (%) (Auto) 7.2 % (24.0-44.0) Monocytes (%) (Auto) 3.2 % (5.0-12.0) Neutrophils # (Auto) 4.2 10^3/uL (1.8-7.7) Lymphocytes # (Auto) 0.3 10^3/uL (1.0-4.8) Monocytes # (Auto) 0.2 10^3/uL (0.3-0.8) Absolute Immature Granulocyte (auto 0.02 10^3 u/L (0-2) Eosinophils % 0.0 % (0.0-5.0) Basophils % 0.2 % (0.0-0.2) Basophils # 0.0 10^3/uL (0.0-0.1) Eosinophil Count 0.0 10^3/uL (0.0-0.2) Prothrombin Time 10.3 SEC (9.8-11.9) Prothrombin Time INR (Non-Therap) 1.0 Activated Partial Thromboplast Time 22.1 SEC (24.67-30.72) Sodium Level 133 mmol/L (132-145) Potassium Level 3.2 mmol/L (3.6-5.2) Chloride Level 99.0 mmol/L (96-109) Carbon Dioxide Level 24.9 mmol/L (20.0-32) Anion Gap 12.3 Blood Urea Nitrogen 4 mg/dL (7-18) Creatinine 0.86 mg/dL (0.59-1.40) Estimated GFR () 88.9 (>/=60) BUN/Creatinine Ratio 4.0 Glucose Level 251 mg/dL (70-110) Calcium Level 8.2 mg/dL (8.4-10.5) Total Bilirubin 0.5 mg/dL (0.2-1.0) Aspartate Amino Transf (AST/SGOT) 17 U/L (0-35) Alanine Aminotransferase (ALT/SGPT) 23 U/L (12-78) Alkaline Phosphatase 78 U/L (50-136) Total Protein 6.9 g/dL (6.4-8.2) Albumin 2.9 g/dL (3.4-5.0) Globulin 4.0 Lipase 127 U/L (114-286) Percent Immature Gran (Cell Imm) 0.40 % (0.00-0.50) Helicobacter pylori Screen NEGATIVE (NEGATIVE) Administered Medications Medications (Trade) Dose Ordered Sig/Madelyn Route PRN Reason Start Time Stop Time Status Last Admin Dose Admin Sodium Chloride 1,000 ml @ 1,000 mls/hr Q1H STAT IV 04/01/18 14:23 04/01/18 15:22 UNV 04/01/18 15:04 Ceftriaxone Sodium 1000 mg/ Sodium Chloride 100 ml @ 100 mls/hr STAT ONCE IV 04/01/18 14:30 04/01/18 15:29 UNV 04/01/18 15:04 Progress Progress r/o sepsis, bacteremia from instrumentation, pneumonia, post op fever given lactate, s/s and recent urologic instrumentation, will admit ICU, abx and follow. Discussed results and options with patient/career consultant who agrees with admission , treatment plan and is without questions at admission. Discussed with Dr. Georges ] Dx SIRS r/o bacteremia labs pending on admit EKG/XRAY/CT/US EKG: NSR EKG Comments: 92, nl ekg XRAY: chest Consult/PCP Time Consult/PCP Called: 14:50 Consult/PCP: sheila Reason/Comments: sirs Departure Time of Disposition: 14:52 Disposition: 09 ADMITTED INPATIENT Impression: Primary Impression: SIRS (systemic inflammatory response syndrome) Additional Impressions: Fever Qualified Codes: R50.9 - Fever, unspecified Thrombocytopenia Elevated lactic acid level Hyperglycemia Hypokalemia Condition: Stable Referrals: FRANSISCO GRANGER (PCP) PRIMARY CARE PROVIDER MARION RENE MD (Family) Duration or Time Spent with Pa: 32 Critical Care Note Total Time (mins): 31 KILEY WILD MD Apr 01, 2018 14:23
[2018-04-01] MEDS ORDERED: NS IV SCH (14:30)
[2018-04-01] MEDS ORDERED: ROCEPHIN 1,000 MG in NS 100ML 100 ML IV ONE (14:30)
[2018-04-01] MEDS ORDERED: ROCEPHIN ONE (14:32)
--- NOTE | 2018-04-01 14:32 | NUR ---
HEATHER WILD ON PHONE WITH DR ROMERO AT THIS TIME.
--- NOTE | 2018-04-01 14:35 | DIREP ---
PROCEDURE:CHEST 2 VIEWS COMPARISON:[facility], CR, XRAY CHEST SINGLE VW, 12/16/2016, 04:32 PM. INDICATIONS:fever FINDINGS: LUNGS/PLEURA:No significant pulmonary parenchymal abnormalities. No effusions. VASCULATURE:Normal. Unremarkable pulmonary vasculature. CARDIAC:Normal. No cardiac silhouette abnormality or cardiomegaly. MEDIASTINUM:Normal. No visible mass or adenopathy. BONES:Normal. No fracture or visible bony lesion. OTHER:Negative. CONCLUSION:Normal examination. Dictated by: Herb Sheth M.D. on 04/01/2018 at 02:34 PM
[2018-04-01 14:38] LABS: BASOPHIL % 0.2 % (0.0-0.2); HEMOGLOBIN 13.8 g/dL (12.0-15.0); LYMPHOCYTES # 0.3 10^3/uL (1.0-4.8); LYMPHOCYTES % 7.2 % (24.0-44.0); MEAN CELL HGB 29.6 pg (26-34); MEAN CELL HGB CONCENTRATION 34.8 g/dL (33-37); MEAN PLATELET VOLUME 10.4 fL (7.8-11.0); MONOCYTES # 0.2 10^3/uL (0.3-0.8); MONOCYTES % 3.2 % (5.0-12.0); NEUTROPHIL # 4.2 10^3/uL (1.8-7.7); RED CELL DISTRIBUTION WIDTH 12.2 % (11.5-14.5); WHITE BLOOD CELL 4.7 10^3/uL (4.5-11.0)
[2018-04-01 14:55] LABS: CALCIUM 8.2 mg/dL (8.4-10.5); CARBON DIOXIDE 24.9 mmol/L (20.0-32)
[2018-04-01 15:28] LABS: BILIRUBIN,URINE NEGATIVE (NEGATIVE); UROBILINOGEN,URINE NORMAL (NEGATIVE)
[2018-04-01 15:39] LABS: APPEARANCE,URINE CLOUDY (CLEAR); UA COLOR YELLOW (YELLOW)
--- NOTE | 2018-04-01 15:45 | PCM.EKG ---
[facility] Test Date: 2018-04-01 Test Time: 14:45:17 Pat Name: ABDULAZIZ WOODWARD Department: Room: ICU2 A Gender: F Vp Cardiovascular Service Line: : 1980 Requested By: BLAZE ROMERO Order Number: [id number] Reading MD: Measurements Intervals [place] Rate: 92 P: 58 SD: 136 QRS: 59 QRSD: 78 T: 50 QT: 354 QTc: 437 Interpretive Statements Normal sinus rhythm Normal ECG Compared to ECG 02/23/2018 12:10:14 Sinus arrhythmia no longer present Please click the below link to view image of tracing.
--- NOTE | 2018-04-01 16:04 | NUR ---
ICU PT TO ICU AT THIS TIME VIA STRETCHER WITH TRANSPORT MONITOR. REPORT TO ELSA MESSINA.
[2018-04-01 16:06] LABS: YEAST,URINE FEW
--- NOTE | 2018-04-01 16:16 | NUR ---
ARRIVAL PATIENT ARRIVED TO UNIT VIA STRETCHER ACCOMPANIED BY ER NURSE. PATIENT TRANSFERRED SELF WITH STANDBY ASSIST TO ICU BED. PATIENT CONNECTED TO MINDRAY AT BEDSIDE. REPORT RECEIVED FROM TRACY HUNTER. PATIENT ORIENTED TO ROOM, BED, AND CALL LIGHT. PATIENT INSTRUCTED TO CALL FOR ASSISTANCE TO PREVENT FALLS AND TO WEAR NON SKID SOCKS.
[2018-04-01] MEDS: TYLENOL PO PRN (17:55)
[2018-04-01] MEDS: NS 1000ML 1,000 ML SCH ×2 (17:56→22:02)
[2018-04-01] MEDS ORDERED: ULTRAM PO PRN (18:00)
[2018-04-01] MEDS ORDERED: FLOMAX PO SCH (18:00)
--- NOTE | 2018-04-01 18:40 | NUR ---
REPORT RECEIVED FROM SIDDHARTH VARELA RN. ASSUMED PT CARE.
--- NOTE | 2018-04-01 19:10 | NUR ---
DR RENE NOTIFIED OF PT ON UNIT. UPDATE GIVEN ON PT STATUS. ORDERS GIVEN FOR: 1) TORADOL 30MG IV Q6HRS X 2 DOSES 2) DILAUDID 0.5MG Q4-6HRS FOR SEVERE PAIN PRN 3) CT OF ABDOMEN AND PELVIS WITHOUT CONTRAST
[2018-04-01] MEDS ORDERED: TORADOL ONE (19:27)
[2018-04-01] MEDS ORDERED: TORADOL IV PRN (19:30)
[2018-04-01] MEDS ORDERED: DILAUDID IV PRN (19:30)
--- NOTE | 2018-04-01 19:40 | NUR ---
DR RENE ON UNIT TO ASSESS PT. VERBAL ORDER TO CANCEL CT OF ABDOMEN AND PELVIS, ALSO CANCEL DILAUDID ORDER. ADMIN TORADOL 30MG IV X1 DOSE ONLY. ORDER RBAV.
[2018-04-01] MEDS: GLUCOPHAGE PO SCH (21:00)
--- NOTE | 2018-04-01 21:41 | NUR ---
BSC - PT UP TO BSC TO VOID. PT VOIDED 550ML.
--- NOTE | 2018-04-01 23:00 | NUR ---
DR ROMERO AT BEDSIDE.
--- NOTE | 2018-04-01 23:24 | NUR ---
MOBILITY LEVEL A: PT TO AMBULATE AT LEAST 3X PER DAY IN HALLWAY. PT TO PARTICIPATE IN PERSONAL CARE. PT TO AMBULATE TO BATHROOM FOR ALL TOILETING NEEDS. PT TO EAT ALL MEALS IN BEDSIDE CHAIR. ABOVE DISCUSSED WITH PT WITH UNDERSTANDING.
[2018-04-02] VITALS (38 sets, daily range): BP systolic 82–144; BP diastolic 35–87
--- NOTE | 2018-04-02 01:20 | HPH ---
ADMIT DATE: 04/01/2018 CHIEF COMPLAINT: Periumbilical pain initially. HISTORY OF PRESENT ILLNESS: She complains of fever, chills and vomiting. She had a urologic procedure for stone and stent placement, removal yesterday. She states she had a fever of 101.3 this morning with body aches and pains. She denies any current nausea, vomiting, in which she has some mild nausea and vomiting earlier with the pain. She has been taking some narcotics, but she states they have not been able to help. She will receive Tylenol No. 4. She was seen by Urology after admission. She does smoke about a pack per day. PAST MEDICAL HISTORY: Includes tobacco abuse, diabetes mellitus type 2, nephrolithiasis. PAST SURGICAL HISTORY: She had a cholecystectomy, hysterectomy, tubal ligation. She just had ureteral stent removed yesterday. ALLERGIES: NO KNOWN DRUG ALLERGIES. HOME MEDICATIONS: List currently includes ciprofloxacin 500 mg b.i.d., tramadol p.r.n. for pain, tamsulosin 0.4 mg daily. SOCIAL HISTORY: Lives at home, smokes about half pack a day. Denies illicit drug use, alcohol use. FAMILY HISTORY: Negative for early coronary artery disease or diabetes. REVIEW OF SYSTEMS: CARDIAC: Denies chest pain, shortness of breath or dyspnea on exertion. PULMONARY: No cough, sputum production or pleuritic chest pain. GASTROINTESTINAL: Some nausea and vomiting. No diarrhea or constipation. All else negative in 10 point review of system except as in HPI. PHYSICAL EXAMINATION: VITAL SIGNS: Upon arrival to the ER, height 170.2 cm, weight 89.4, BMI 30.9, temperature 100.9, pulse 76, respiratory rate 17, blood pressure 163/59, O2 saturation 98% on room air. GENERAL: She is alert, in no acute distress at the time of exam. HEENT: Pupils equal, round, reactive to light. Sclerae are anicteric. Oropharynx is clear. Mucous membranes are moist. NECK: Supple, no lymphadenopathy. CARDIOVASCULAR: At time of exam was regular rate and rhythm. LUNGS: Clear bilaterally. No wheezing. ABDOMEN: Soft. Bowel sounds are present, nontender to palpation. EXTREMITIES: No cyanosis, clubbing or significant edema. NEUROLOGIC: Grossly nonfocal. LABORATORY DATA: Her lactate was 2.3. CBC: White count 4.7, hemoglobin 13.8, platelets 128. Sodium 133, potassium 3.2, chloride 99, CO2 25, BUN 4, creatinine 0.86, glucose 251, calcium is 8.2, total bilirubin 0.5, AST 17, ALT is 23, alkaline phosphatase 78, total protein 6.9, albumin 2.9. H. pylori is negative. Urine pH is 6.0, specific gravity is 1.015 too numerous to count rbc's, 5-10 wbc's, few squamous epithelial cells, a few bacteria, few yeast. Positive glucosuria. IMAGING STUDIES: Chest x-ray performed in the Emergency Room was negative for acute process. ASSESSMENT AND PLAN: 1. The patient is a 37-year-old woman here with myalgia and fever of unknown etiology with recent ureteral stent removal with no evidence of recurrent nephrolithiasis. 2. We will continue IV for hydration. 3. Appropriate p.r.n. pain and nausea medication. 4. We will continue home medications and ADA diet. 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 She was offered nicotine patch, she refused. Time spent on 04/01/2018, is 45 minutes. This plan was discussed with the patient. She is her own decision maker. She does understand and concur with plans. Jose Antonio Georges MD DR: RICKIE/adams JOB# [id number]
--- NOTE | 2018-04-02 01:50 | NUR ---
PT STATUS: PT AWOKE FEELING NAUSEOUS AND REQUESTED BASIN. BASIN PROVIDED AND PT THREW UP APPROXIMATELY 100ML. PT REPORTS FEELING BETTER AFTER THROWING UP. PT AMBULATED TO BEDSIDE COMMODE WITHOUT DIFFICULTY AND VOIDED. PT ACCEPTED REQUEST FOR POPSICLE.
[2018-04-02] MEDS ORDERED: ZOFRAN IV PRN (02:00)
--- NOTE | 2018-04-02 02:00 | NUR ---
TEMP IS 100.3F. UNABLE TO ADMIN PO TYLENOL AT THIS TIME DUE TO PT VOMITING.
--- NOTE | 2018-04-02 02:10 | NUR ---
ZOFRAN 4MG IV ADMIN FOR N/V.
--- NOTE | 2018-04-02 02:40 | NUR ---
TEMP IS 100.1F. TYLENOL 1000MG ADMIN AT THIS TIME.
[2018-04-02] MEDS: TYLENOL PO PRN (02:41)
[2018-04-02] MEDS: NS 1000ML 1,000 ML SCH (04:19)
--- NOTE | 2018-04-02 04:35 | NUR ---
WAX BLEACHER AT BEDSIDE FOR BLOOD DRAW.
--- NOTE | 2018-04-02 04:38 | NUR ---
TEMP IS 98.3F
--- NOTE | 2018-04-02 05:07 | NUR ---
BSC - PT UP TO BSC TO VOID.
--- NOTE | 2018-04-02 05:07 | NUR ---
BATH: PT OFFERED BATH. PT DECLINED AT THIS TIME. PER PT REPORT "I WOULD RATHER HAVE IT DONE LATER SO MY CAN HELP ME".
[2018-04-02 05:33] LABS: BASOPHIL % 0.3 % (0.0-0.2); EOSINOPHIL % 0.3 % (0.0-5.0); HEMOGLOBIN 12.4 g/dL (12.0-15.0); LYMPHOCYTES # 0.4 10^3/uL (1.0-4.8); LYMPHOCYTES % 10.7 % (24.0-44.0); MEAN CELL HGB CONCENTRATION 34.1 g/dL (33-37); MEAN PLATELET VOLUME 10.9 fL (7.8-11.0); MONOCYTES # 0.3 10^3/uL (0.3-0.8); MONOCYTES % 8.3 % (5.0-12.0); NEUTROPHIL # 2.6 10^3/uL (1.8-7.7); NEUTROPHILS % 80.1 % (41.0-85.0); RED CELL DISTRIBUTION WIDTH 12.2 % (11.5-14.5); WHITE BLOOD CELL 3.3 10^3/uL (4.5-11.0)
--- NOTE | 2018-04-02 06:38 | NUR ---
REPORT TO AM SHIFT. PT CARE RELINQUISHED.
--- NOTE | 2018-04-02 07:35 | NUR ---
ASSESSMENT/ACTIVITY LEVEL A PATIENT AWAKE SITTING UP IN BED. ASSESSMENT COMPLETED CHARTED, SEE EMR. PATIENT AMBULATED TO BSC THEN SINK WITHOUT DIFFICULTY. PATIENT LEFT SITTING ON SIDE OF BED WATCHING TV. CALL LIGHT WITHIN EASY REACH.
[2018-04-02] MEDS ORDERED: FLOMAX PO SCH (09:00)
[2018-04-02] MEDS: GLUCOPHAGE PO SCH (09:00)
--- NOTE | 2018-04-02 09:00 | NUR ---
MEDICATION PATIENT TOOK OWN MEDICATIONS.
--- NOTE | 2018-04-02 09:35 | NUR ---
DR. BARBOZA AT BEDSIDE ASSESSING PATIENT AND DISCUSSING PLAN CARE. PATIENT TO BE DISCHARGE HOME TODAY, PATIENT TO F/U WITH PCP WITHIN 2 WEEKS. PATIENT AND SPOUSE BOTH IN AGREEMENT WITH DISCHARGE PLAN. IV ACCESS PULLED, IV CATHETER INTACT. SITE COVER WITH BAND-AID. NO S/S OF INFECTION. PATIENT TO DRESS HERSELF.
--- NOTE | 2018-04-02 09:55 | NUR ---
DISCHARGE PATIENT GIVEN DISCHARGE INSTRUCTION. PATIENT VOICED UNDERSTANDING. PATIENT TO F/U WITH HER PCP IN [address] RENE. SPOUSE PRESENT. PATIENT ACCOMPANIED TO PRIVATE VEHICLE. NO DISTRESS NOTED. GAIT STEADY AND BALANCED.
--- NOTE | 2018-04-02 22:13 | DSH ---
DATE OF DISCHARGE: 04/02/2018 ADMITTING DIAGNOSES: Nausea, vomiting, dehydration with myalgias, malaise and fatigue. DISCHARGE DIAGNOSIS: Dehydration, resolved. HOSPITAL COURSE: The patient is a 37-year-old female who recently had a ureteral stent removed. She had not been feeling well and spiked a fever at home and had myalgias. She was clinically dehydrated when she came in with some nausea and vomiting. She was given a fluid bolus in the ER. We continued IV fluids in the hospital. Overnight, she has done quite well. She is afebrile. She does have a slightly depressed white count and platelet count, but she is feeling better today. She is no longer nauseated or vomiting. Her muscle aches are improved. Lactic acid level was elevated to begin with, but it is normal on repeat draw, but again today she does feel a lot better. She is tolerating p.o. intake. I have asked her to follow up with Dr. Marinelli as scheduled and follow up with her PCP, Dr. Quinones to make sure her blood counts does do normalize down the road. She is to resume home diet and activity level and she has not had a bowel movement for several days due to the fact that she has been on Tylenol No.4 and tramadol and I am holding these. I have asked her to take some MiraLax and enema in 3 days' time if she does not have a bowel movement at home. Hilary Guardado MD DR: YVES/adams JOB# [id number]
== END 2018-04-02 09:55 | disposition home or self-care (01) | DRG 641 ==
LOC: ER 13:22 → ICU 15:22
PROVIDERS: ADMIT Internal Medicine; ATTEND Internal Medicine
DX: E86.0 Dehydration (principal); R65.10 Systemic inflammatory response syndrome (SIRS) of non-infectious origin without acute organ dysfunction; F17.200 Nicotine dependence, unspecified, uncomplicated; E11.9 Type 2 diabetes mellitus without complications; K59.00 Constipation, unspecified; F32.9 Major depressive disorder, single episode, unspecified; Z87.442 Personal history of urinary calculi; Z90.710 Acquired absence of both cervix and uterus; Z90.49 Acquired absence of other specified parts of digestive tract; Z98.51 Tubal ligation status; Z79.899 Other long term (current) drug therapy
CPT/HCPCS: 36415; 36600; 71046; 80053; 81000; 82948; 83605; 83690; 85025; 85610; 85730; 86677; 87040; 87086; 93005; 96365; 99291; J0696; J1885; J2405; J7030; J7050